=== PATIENT | male | born 1995 | race African-American/Black ===

== ENCOUNTER 2016-06-08 19:06 | Emergency (ER) | payer BC ==
[~2016-06-08] VITALS: Ht 177.8 cm; Wt 83.7 kg
[2016-06-08 19:20] VITALS: TEMP 37.1; Ht 177.8 cm; Wt 83.7 kg
[2016-06-08] MEDS ORDERED: IBUP-1050 PO (19:40)
[2016-06-08] MEDS ORDERED: METH4PAK PO (19:53)
[2016-06-08] MEDS ORDERED: AMOX500C3 PO (19:53)
--- NOTE | 2016-06-08 19:53 | EMERGENCY ROOM VISIT NOTE ---
ED Visit Note First contact with patient: 19:25 Chief Complaint: Swollen Throat, Hard to Eat/Chew/Swallow History of Present Illness: Patient is a 21-year-old male who presents to the emergency permit this evening for evaluation of a sore throat. He reports that over the past 2 years he's had yearly episodes of pharyngitis. He's been treated with steroids and antibiotics in the past with continued relief of symptoms. He states that over the past 2-3 days he's had worsening sore throat as well as pain with swallowing. He is tried nothing lshh-lbr-tambfrv for symptoms. He rates his current discomfort as an 8/10. He denies any fevers, chills, headaches, distance, lightheadedness, ear pain/pressure, neck stiffness , nausea, vomiting, or abdominal pain. He reports no history of mono. He is uncertain of history of strep. Medications: No current medications. Allergies: No known allergies. PMH: As above. SHx: Patient is a 21-year-old male who lives locally. ROS: All pertinent positive and negative review of systems are appropriately documented in the History of Present Illness. Physical Exam: VITAL SIGNS - Vital signs and nursing notes were reviewed. GENERAL - Well nourished, well developed 21-year-old male in no acute distress. Pt communicates well with provider and answers questions appropriately. SKIN - Without rash. HEAD - NC/AT with no obvious deformities. EYES - PERRL with EOMI bilaterally. Sclera without injectio. Palpebral conjunctiva pink and moist. EARS - No deformities of external structures noted on gross examination bilaterally. no pain elicited with palpation of the tragus bilaterally. External auditory canals without discharge or otorrhea. Tympanic membranes pearly lake without retraction or bulging. No fluid or purulent material visualized behind the TM. Handle of malleus, umbo, cone of light, pars tensa/ flaccid all easily visualized. NOSE - Midline and without cyanosis. No purulent drainage noted. Nasal mucosa without mucus discharge. MOUTH/OROPHARYNX - Without perioral cyanosis. Buccal mucosa pink and moist and without leukoplakia. Tongue midline with no palate deviation. No tonsillar hypertrophy appreciated bilaterally. No kissing tonsils. No trismus. No erythema or exudates noted. Good dentition noted. No muffled voice. NECK - Neck with FROM. Supple to palpation. No lymphadenopathy noted. No nuchal rigidity. LUNGS - Chest wall symmetric without accessory muscle use, intercostals retractions, or central cyanosis. Normal vesicular breath sounds CTA B/L. No wheezes, rales, or rhonchi appreciated. CARDIAC - RRR with S1/S2. No murmur, rubs, or gallops appreciated. ABDOMEN - Abdominal contour flat without pulsations or visible masses. BS normoactive all four quadrants. No tenderness, palpable masses, hepatosplenomegaly, or ascites noted. ED Course: Patient was seen and evaluated by myself. Rapid strep was obtained. Rapid strep was found to be negative. I had a lengthy discussion with the patient regarding symptoms and management. His symptoms are less than 3 days at this point. He has no fever. He is nontoxic-appearing. I am hesitant to start the patient on antibiotics this point. The patient was provided a prescription for prednisone and amoxicillin in the event that his symptoms are not improving over the next 48 hours. The patient was educated on worrisome symptoms for return visit to the emergency department. Patient discharged home in good condition. In the evaluation and treatment of this patient, the following differential diagnoses were considered: [place], strep, retropharyngeal abscess, peritonsillar abscess, viral process, amongst others. Impression: Pharyngitis Discharge Instructions: You were seen in the emergency department for your sore throat. The results of your rapid strep screen were found to be NEGATIVE. You will be contacted in 48- 72 hr with the results of your pending strep culture. You have been provided a prescription for prednisone and amoxicillin to be used in the event that your symptoms are not improving over the next 48 hours. For pain and fever control, you can use the following wmzy-ynw-vzepvqb medicines (if >12 yo): - Regular strength (325mg/tab) Tylenol (acetaminophen) 2 tabs every 4-6 hours as needed. Do not exceed 12 tablets in a 24 hour period. Avoid taking more than 4 grams (4000 mg) of Tylenol per day. This includes any other sources of acetaminophen you may take on a regular basis. - Regular strength (200 mg/tab) Advil (ibuprofen) 1-2 tabs every 4-6 hours as needed. Do not exceed a dose of 3200 mg per day. - For best results, alternate dosing of Tylenol and Advil. In addition to your prescribed medications, you can also use the following home remedies: - Warm salt-water gargles 3 times per day can soothe your throat and help to fight infection. - Warm tea with honey can soothe your throat. Return to the emergency department if your symptoms persist or worsen over the next 2-3 days despite treatment course outlined above. Return to the emergency department if you develop the following symptoms of: inability to swallow solids , liquids, or drool; excessive wheezing or inability to catch your breath; or intractable fever or pain. Follow up with your primary care provider in 2-3 days from today's emergency department visit. Current/Historical Medications Scheduled Amoxicillin (Amoxil), 500 MG PO TID Methylprednisolone (Medrol Dosepak), 0 PO DAILY Scheduled PRN Ibuprofen (Advil), 400 MG PO Q6 PRN for Pain Allergies Coded Allergies: No Known Allergies (Unverified , 06/08/16) Vital Signs Date Time Temp Pulse Resp B/P Pulse Ox O2 Delivery O2 Flow Rate FiO2 06/08/16 19:59 72 18 143/77 98 06/08/16 19:24 97 Room Air 06/08/16 19:20 37.1 72 16 137/77 97 Room Air Departure Information Impression Primary Impression: Pharyngitis Dispostion Home / Self-Care Condition GOOD Prescriptions Amoxicillin (AMOXIL) 500 Mg Cap 500 MG PO TID for 10 Days, #30 CAP Prov: Taras Sanches PA-C 06/08/16 Methylprednisolone (MEDROL DOSEPAK) 4 Mg Eladio 0 PO DAILY, #1 PKT Prov: Taras Sanches PA-C 06/08/16 Referrals No Doctor, Assigned (PCP) Patient Instructions My [facility] Additional Instructions You were seen in the emergency department for your sore throat. The results of your rapid strep screen were found to be NEGATIVE. You will be contacted in 48- 72 hr with the results of your pending strep culture. You have been provided a prescription for prednisone and amoxicillin to be used in the event that your symptoms are not improving over the next 48 hours. For pain and fever control, you can use the following htnf-equ-tljtjir medicines (if >12 yo): - Regular strength (325mg/tab) Tylenol (acetaminophen) 2 tabs every 4-6 hours as needed. Do not exceed 12 tablets in a 24 hour period. Avoid taking more than 4 grams (4000 mg) of Tylenol per day. This includes any other sources of acetaminophen you may take on a regular basis. - Regular strength (200 mg/tab) Advil (ibuprofen) 1-2 tabs every 4-6 hours as needed. Do not exceed a dose of 3200 mg per day. - For best results, alternate dosing of Tylenol and Advil. In addition to your prescribed medications, you can also use the following home remedies: - Warm salt-water gargles 3 times per day can soothe your throat and help to fight infection. - Warm tea with honey can soothe your throat. Return to the emergency department if your symptoms persist or worsen over the next 2-3 days despite treatment course outlined above. Return to the emergency department if you develop the following symptoms of: inability to swallow solids , liquids, or drool; excessive wheezing or inability to catch your breath; or intractable fever or pain. Follow up with your primary care provider in 2-3 days from today's emergency department visit. Problem Qualifiers Primary Impression: Pharyngitis Pharyngitis/tonsillitis etiology: unspecified etiology Qualified Codes: J02.9 - Acute pharyngitis, unspecified
[2016-06-08 19:59] VITALS: BP 143/77; PULSE 72; O2SAT 98
== END 2016-06-08 19:59 | disposition home or self-care (01) ==
LOC: C.EDB 19:07 → C.EDD 19:59
DX: J02.9 Acute pharyngitis, unspecified (principal)

== ENCOUNTER 2016-07-13 11:53 | Emergency (ER) | payer BC, OTHER ==
[~2016-07-13] VITALS: Ht 177.8 cm; Wt 79.9 kg
[~2016-07-13 11:53] MED LIST: IBUP-1050 PO
[2016-07-13 11:56] VITALS: TEMP 36.6; O2SAT 96; Ht 177.8 cm; Wt 79.9 kg
[2016-07-13] MEDS ORDERED: AMOXICILLIN 250 MG CAP PO STA (12:26)
[2016-07-13] MEDS ORDERED: AMOX500C3 PO (12:30)
[2016-07-13] MEDS ORDERED: PRED20TA2 PO (12:30)
[2016-07-13] MEDS ORDERED: HYDR5SYP11 PO (12:30)
--- NOTE | 2016-07-13 12:31 | EMERGENCY ROOM VISIT NOTE ---
History Report prepared by Masood: Pat Landeros Under the Supervision of: Dr. Jason Choi M.D. First contact with patient: 12:18 Chief Complaint: SORETHROAT Stated Complaint: THROAT IS SWOLLEN, CAN'T EAT/DRINK, SWALLOWING SHAKA History of Present Illness The patient is a 21 year old male who presents to the Emergency Room with complaints of a persistent sore throat that began a few days ago. He also complains of some neck soreness. The patient has not eaten a full meal since Monday because his pain is worse with swallowing. The patient has a history of pharyngitis 2 years ago and states that his current symptoms feel similar to his previous bout of pharyngitis. The patient was in the emergency room on June 08 of this year with similar symptoms and was put on Amoxicillin and a Medrol dose pack. He states that the medications helped his symptoms, but they have since returned. Source of History: patient Onset: a few days ago Position: throat Quality: other (sore) Timing: other (persistent) Modifying Factors (Worsening): eating, drinking Associated Symptoms: + neck pain Review of Systems See HPI for pertinent positives & negatives. A total of 10 systems reviewed and were otherwise negative. Past Medical & Surgical Medical Problems: (1) Pharyngitis Family History No pertinent family history stated. Social History Smoking Status: Never Smoker Marital Status: single Occupation Status: [employer] student Current/Historical Medications Scheduled Amoxicillin (Amoxil), 500 MG PO TID Prednisone (Prednisone Tab), 0 PO DAILY Scheduled PRN Hydrocodone W/ Homatropine (Hycodan 5/1.5MG 5 Ml), 5 ML PO HS PRN for Pain Ibuprofen (Advil), 400 MG PO Q6 PRN for Pain Allergies Coded Allergies: No Known Allergies (Unverified , 07/13/16) Physical Exam Vital Signs Date Time Temp Pulse Resp B/P Pulse Ox O2 Delivery O2 Flow Rate FiO2 07/13/16 12:42 60 153/81 07/13/16 12:42 Room Air 07/13/16 11:56 36.6 76 18 156/74 96 Room Air Physical Exam GENERAL: Patient is a healthy-appearing well-nourished HEAD: Normocephalic atraumatic EYES: Ocular movements intact pupils equal and react to light OROPHARYNX mucous membranes are moist no exudates present no erythema or edema present. Able to swallow own saliva. The tonsils are not enlarged. NECK: Supple no nuchal rigidity CHEST: Good equal expansion LUNGS: Clear and equal to auscultation CARDIAC: Normal S1 and S2 ABDOMEN: Soft nontender no guarding BACK: No CVA tenderness EXTREMITIES: No pain upon palpation normal muscle strength in all groups no clubbing cyanosis or edema NEURO: Patient is following commands is answering questions appropriately. Alert and oriented x3 Cranial Nerves 2-12 grossly intact Medical Decision & Procedures Medications Administered Medications (Trade) Dose Ordered Sig/Fausto Route Start Time Stop Time Status Last Admin Dose Admin Prednisone (PredniSONE TAB) 60 mg NOW STAT PO 07/13/16 12:26 07/13/16 12:27 DC 07/13/16 12:40 60 MG Amoxicillin (Amoxil Cap) 500 mg NOW STAT PO 07/13/16 12:26 07/13/16 12:27 DC 07/13/16 12:40 500 MG ED Course 1220: Past medical records reviewed. The patient was evaluated in room C5. A complete history and physical examination was performed. I discussed the treatment plan with the patient. He verbalizes agreement and understanding. The patient is ready for discharge. 1226: Ordered Amoxicillin 500 mg PO, Prednisone 60 mg PO. Medical Decision Differential diagnosis: Etiologies such as viral syndrome, tonsillitis, streptococcal pharyngitis, mononucleosis, peritonsillar abscess, retropharyngeal abscess, otitis, pneumonia , influenza, as well as others were entertained. This is a 21-year-old male who presents emergency department complaining Of sore throat. The patient is requesting prednisone and amoxicillin as that is what he had last time he was in the emergency department. He was swabbed for strep. Despite culture is still pending. I offered to do an IV along with IV medications however the patient is just requesting the pills. For this reason he was given prednisone and amoxicillin she department. Repeat examination revealed improvement the patient's symptoms. Impression Primary Impression: Pharyngitis Scribe Attestation The scribe's documentation has been prepared under my direction and personally reviewed by me in its entirety. I confirm that the note above accurately reflects all work, treatment, procedures, and medical decision making performed by me. Departure Information Dispostion Home / Self-Care Prescriptions Hydrocodone W/ Homatropine (HYCODAN 07/25.5MG 5 ML) 1 Syp Syp 5 ML PO HS Y for Pain, #120 ML Prov: Jason Choi MD 07/13/16 Amoxicillin (AMOXIL) 500 Mg Cap 500 MG PO TID for 10 Days, #30 CAP Prov: Jason Choi MD 07/13/16 Prednisone (Prednisone Tab) 20 Mg Tab 0 PO DAILY, #7 TAB 2 TABS DAILY FOR 2 DAYS, THEN 1 TAB DAILY FOR 2 DAYS, THEN 1/2 TAB DAILY FOR 2 DAYS. Prov: Jason Choi MD 07/13/16 Referrals [facility] Patient Instructions ED Pharyngitis Viral Report Pending, My [facility] Additional Instructions You received narcotic or benzodiazepene medication while in the emergency room today. Do not drive, operate heavy machinery, or drink alcohol under the influence of this medication. Take 600 mg Ibuprofen every 6 hours Take Percocet for breakthrough pain You have been examined and treated today on an emergency basis only. This is not a substitute for, or an effort to provide, complete comprehensive medical care. It is impossible to recognize and treat all injuries or illnesses in a single emergency department visit. It is therefore important that you follow up closely with [facility]. Call as soon as possible for an appointment. Thank you for your time and consideration. I look forward to speaking with you again soon. Please don't hesitate to call us if you have any questions. Problem Qualifiers Primary Impression: Pharyngitis Pharyngitis/tonsillitis etiology: unspecified etiology Qualified Codes: J02.9 - Acute pharyngitis, unspecified
[2016-07-13 12:42] VITALS: BP 153/81; PULSE 60
== END 2016-07-13 12:45 | disposition home or self-care (01) ==
LOC: C.EDB 11:54 → C.EDC 12:45
DX: J02.9 Acute pharyngitis, unspecified (principal)